=== PATIENT | male | born 1955 | race Caucasian/White ===

== ENCOUNTER 2016-09-15 17:47 | Emergency (ER) | payer OTHER, MEDICAID ==
[2016-09-15 17:54] VITALS: TEMP 97.9
--- NOTE | 2016-09-15 18:23 | EDPHY ---
General Narrative: CHIEF COMPLAINT: Crush injury to right middle finger HISTORY OF PRESENT ILLNESS: Patient was sitting down in a chair the past hour when he accidentally got his finger caught between the chair frame in the past on the chair. This was the right middle finger. Noted a sudden onset of significant pain in the finger. This is primarily over the distal phalanx. It does involve the nail with some bleeding. Pain is 6/10. It radiates up into the finger. There is no associated injury or pain in the right hand or wrist. Worse with palpation and movement. Improved at rest. No anesthesia. No other associated complaints or modifying factors. No hemophilia or use of blood thinners. Not sure when his last tetanus was updated. REVIEW OF SYSTEMS: Ten systems reviewed and are negative unless otherwise noted in the HPI EXAMINATION General Appearance: Alert, no distress Cardiovascular: Pulses normal throughout. Symmetric radial pulses 2+. Brisk cap refill Neurological: A&O, sensory symmetric, strength symmetric. Two-point sensation intact. Skin: Warm and dry, no rash. There is laceration to the nail, distally near the end of the nail. No obvious injury to the nail bed. Mild venous bleeding noted. No definite discernible laceration to the finger tip. Some subungual hematoma noted to the right middle finger. Extremities: Moderate tenderness to palpation of the right middle finger distal phalanx. Nail injury as noted above. No tenderness of the base of the finger, metacarpals, carpals or forearm of the right hand. Range of motion is fully intact including interossei. Psychiatric: Mood and affect normal Repeat musculoskeletal examination: After copious irrigation it is now visualized better. There is a small area of nail bed that has flipped anterior an overlapping the nail. DIFFERENTIAL DIAGNOSES: Including but not limited to crush injury, toe fracture, nail injury, laceration , subungual hematoma MDM: 6:13 p.m. Crush injury to the right middle finger within the past hour. He smashed between a chair pad in the metal from the chair. He does have injury to the nail at the distal portion of the nail. There does not appear to be injury to the nail bed. I have applied a digital block and will re-examine after anesthesia. X-ray has been ordered. Tetanus is in question and he is attempting to find out when he last was. Proceed with irrigation washout. Will re-examine after this 6:35 p.m. X-ray as interpreted by me does reveal a small, minimally displaced tuft fracture on the affected finger. No other bony abnormality noted. 6:48 p.m. The wound has now been copiously irrigated. I re-explored the wound and it does appear that the nail bed is slightly overlapping the nail itself. I will consult hand surgeon for recommendations. X-ray report reveals a minimally displaced tuft fracture as I interpreted. No other acute findings. 7:05 p.m. Discussed case with on-call hand surgeon Dr. Mims. I informed him of the tuft fracture partial left from the nail and the presentation of the nail bed. I informed him of the subungual hematoma that was trephinated with minimal return. He recommends returning the nail bed to underneath nail. He does not recommend any suture repair. Recommends bulky dressing, Augmentin discharged home. Patient may follow up outpatient in the clinic. We did here does recommendations. I was able to then replaced the nail bed underneath the nail without complication. No suture was placed. Bulky dressing was in place. He remains neurovascular intact post procedure. I will place him on Augmentin prophylactically. Discharged home stable condition. PROCEDURE: Digital Block Indication: Crush injury, nail injury Consent: Verbal Location: Right middle finger Anesthesia: Lidocaine 1% plain, 0.25% Marcaine plain, 5mL Description: Base of the right middle finger was clean. Using sterile technique, 5 mL of the above were infused over the radial ulnar aspects of the middle finger. Tolerated well. Good anesthesia. Brisk cap refill postprocedure. Complications: None Subungual hematoma release After digital block was performed and successful, used a Bovie to make a small hole in the right middle fingernail bed over the area hematoma. Small amount of hematoma was evacuated. Tolerated without any pain or complication. Remains neurovascular intact. Still has cap refill to the remaining nail. ED Precautions: Worsening pain. Erythema, edema, cyanosis, pallor, paresthesia or anesthesia. SUPERVISION: This patient was independently evaluated without direct examination by the attending physician. Case was discussed with attending physician. Case discussed with hand surgeon Dr. Mims. - Diagnostics Imaging: I viewed and interpreted images myself Imaging Results: Imaging Impressions Finger X-Ray 09/15/16 18:12 Impression: Acute minimally displaced distal tuft fracture of the third finger. - History Smoking Status: Never smoked - Objective Vital Signs: Initial Vital Signs Temperature (C) 97.9 F 09/15/16 17:51 Heart Rate 62 09/15/16 17:51 Respiratory Rate 20 09/15/16 17:51 Blood Pressure 146/103 H 09/15/16 17:51 O2 Sat (%) 98 09/15/16 17:51 O2 Delivery Mode Room Air Allergies/Adverse Reactions: No Known Allergies Allergy (Verified 09/15/16 17:51) Home Medications: Medication Instructions Recorded Amoxicillin/Clavulanate Pot 875 mg PO BID #20 tab 09/15/16 [Augmentin 875 MG TAB (*)] oxyCODONE HCL/ACETAMINOPHEN 1 each PO Q4-6PRN PRN #20 tablet 09/15/16 [Percocet 5-325 mg Tablet] Medications Given: Discontinued Medications Amoxicillin/Clavulanate Potassium (Augmentin 875mg) 875 mg PO EDNOW ONE PRN Reason: Protocol Stop: 09/15/16 18:46 Last Admin: 09/15/16 19:08 Dose: 875 mg Departure - Departure Disposition: Home, Routine, Self-Care Clinical Impression: Subungual hematoma, Nail bed injury Crushing injury of finger of right hand Qualifiers: Encounter type: initial encounter Qualified Code(s): S67.21XA - Crushing injury of right hand, initial encounter Condition: Good Instructions: Subungual Hematoma (ED), Nail Avulsion (ED), Crush Injury (ED) Additional Instructions: Wound care as discussed. Follow up with hand surgeon for definitive care. Return to ER for worsening pain, cyanosis or pallor as we discussed Referrals: Evaristo Horner MD [Primary Care Provider] - As per Instructions Alberto Diaz MD [Medical Doctor] - As per Instructions Prescriptions: Amoxicillin/Clavulanate Pot [Augmentin 875 MG TAB (*)] 875 mg PO BID #20 tab oxyCODONE HCL/ACETAMINOPHEN [Percocet 5-325 mg Tablet] 1 each PO Q4-6PRN PRN # 20 tablet PRN Reason: Pain, Breakthrough
[2016-09-15] MEDS ORDERED: AMOXICILLIN/CLAVULANATE POT 875/125 MG TAB PO ONE (18:45)
[2016-09-15 19:35] VITALS: BP 126/80; PULSE 78; RESP 16; O2SAT 92
== END 2016-09-15 19:30 | disposition home or self-care (01) ==
PROC: 0H9QXZZ Drainage of Finger Nail, External Approach (ICD-10-PCS; principal; 2016-09-15)
DX: S67.21XA Crushing injury of right hand, initial encounter (principal); S60.131A Contusion of right middle finger with damage to nail, initial encounter; W23.1XXA Caught, crushed, jammed, or pinched between stationary objects, initial encounter